=== PATIENT | male | born 1945 | race Hispanic/Latino ===

== ENCOUNTER 2017-07-05 21:07 | Emergency (ER) | payer MEDICARE ==
--- NOTE | 2017-07-05 21:32 | ED PDOC ---
Syncope/Near Syncope/Dizziness Time Seen by Provider: 07/05/17 21:13 Chief Complaint (Nursing): Chest Pain Chief Complaint (Provider): Syncope History Per: Patient History/Exam Limitations: no limitations Onset/Duration Of Symptoms: Mins (prior to arrival) Current Symptoms Are (Timing): Still Present Number Of Syncopal Episodes: 1 Additional History Per: Family Additional Complaint(s): The patient is a 72yo male, with PMHx aortic stenosis, CHF, CLL, diabetes, CAD and surgical history of cardiac stents, is brought to the ED via EMS for evaluation of a syncopal episode. Patient is accompanied by his family members who report the patient passed out at home and prior to the episode, he was complaining of chest pain. The patient reports that his chest pain has been present for a long time due to his history of aortic stenosis. EMS report that on field, patient had low blood pressure and was diaphoretic. The patient is currently complaining of mild chest pain and difficultly breathing. He denies any fever or cough. Of note, patient reports he was diagnosed with aortic stenosis many years ago and has been worked up at [facility] and is scheduled for an aortic surgery tomorrow. Patient states the surgery is to be performed by Dr. Darin Garcia and Dr. Jordy Clark at [facility]. Patient currently offers no additional medical complaints. PMD: Out of State Past Medical History Reviewed: Historical Data, Nursing Documentation, Vital Signs Vital Signs: Last Vital Signs Temp 98.3 F 07/05/17 21:09 Pulse 110 H 07/05/17 21:23 Resp 22 07/05/17 21:09 BP 104/72 07/05/17 21:23 Pulse Ox - Medical History PMH: CHF, Diabetes Other PMH: CLL, aortic stenosis - Surgical History Surgical History: Coronary Stent - Family History Family History: States: Unknown Family Hx - Social History Current smoker - smoking cessation education provided: No Alcohol: None Drugs: Denies - Home Medications Home Medications: Ambulatory Orders Medication Instructions Recorded Aspirin [Aspirin Chewable] 1 tab PO DAILY 07/06/17 Olmesartan Medoxomil [Benicar] 1 tab PO DAILY 07/06/17 Pravastatin Sodium [Pravachol] 10 mg PO DAILY 07/06/17 valACYclovir [Valtrex] 1 tab PO DAILY 07/06/17 - Allergies Allergies/Adverse Reactions: Allergies Allergy/AdvReac Type Severity Reaction Status Date / Time No Known Allergies Allergy Verified 07/05/17 21:09 Review of Systems ROS Statement: Except As Marked, All Systems Reviewed And Found Negative Constitutional: Negative for: Fever Cardiovascular: Positive for: Chest Pain Respiratory: Positive for: Shortness of Breath. Negative for: Cough Neurological: Positive for: Other (syncopal episode) Physical Exam - Reviewed Nursing Documentation Reviewed: Yes Vital Signs Reviewed: Yes - Physical Exam Appears: Positive for: No Acute Distress. Negative for: Well Head Exam: Positive for: ATRAUMATIC, NORMAL INSPECTION, NORMOCEPHALIC Skin: Positive for: Warm (extremities ), Diaphoresis Eye Exam: Positive for: Normal appearance, EOMI, PERRL Neck: Positive for: Normal, Supple Cardiovascular/Chest: Positive for: Regular Rate, Rhythm, Murmur Respiratory: Positive for: Accessory Muscle Use, Crackles (bilaterally present at base of lungs) Pulses-Dorsalis Pedis (L): 2+ Pulses-Dorsalis Pedis (R): 2+ Pulses-Radial (L): 2+ Pulses-Radial (R): 2+ Gastrointestinal/Abdominal: Positive for: Normal Exam, Soft. Negative for: Tenderness Back: Positive for: Normal Inspection Extremity: Positive for: Normal ROM, Pedal Edema (mild edema present bilaterally ), Other (extremities cool to touch). Negative for: Deformity, Swelling Neurologic/Psych: Positive for: Alert, Oriented. Negative for: Motor/Sensory Deficits - Laboratory Results Result Diagrams: 07/05/17 21:25 07/05/17 21:25 - Critical Care Total Time (In Min): 180 Documented Critical Care: Time excludes all time spent performint seperately billable procedures Medical Decision Making Medical Decision Making: Time: 2112 Impression: Syncope with hypotension, CHF exacerbation due to aortic stenosis. Differential: ACS, pulmonary embolism less likely, advanced heart failure, cardiac arrhythmia Plan: * EKG * BNP * Troponin I * Labs * PTT * PT * CXR Time: 2152 Call placed to [facility] Time: [address] Javed, cardiac surgeon manager administration at [facility] who reports he will admit patient to cardiac ICU pending bed availability. Case also discussed with Dr. Darin Garcia, patient's primary cardiac surgeon at [facility], who accepted the patient to Cardiac ICU under his service and has requested a bed from the transfer center. Transfer center is currently working to get a bed at the Cardiac ICU however there are no empty beds. The patient at this moment is accepted for transfer to Cardiac ICU at [facility] pending bed availability. Pt is to be transferred because [facility] does not have a cardiac surgery or cardiac ICU facility. Plan discussed at length with patient and his family who agree with transfer to [facility] pending a bed. Time: 2199 -- Morphine 2mg IVP ordered Time: 0 Pt with increased difficulty breathing, pulse ox dropped to 80's and pt was placed on BIPAP. After BIPAP placement, pt had significant improvement and normal levels of O2 saturation. -- Morphine 2mg IVP ordered Due to length of transfer to [facility], [facility] cardiac surgery team contacted for a possible transfer due to proximity to this facility. Case was also discussed with anesthesiologist manager administration to discuss about the possibility of intubating patient due to the length of trasnger. Due to comorbities of the patient and severe stenosis, anesthesiologist does not recommend intubation outside an OR. Patient and family informed of necessity for intubation and they refuse intubating patient for transfer. Time: 2232 -- ABG ordered Time: 2234 Case discussed with ADARSH Aldana at [facility], who is working for Dr. West; ADARSH Aldana discussed case with Dr. West who will accept the patient to cardiac ICU at [facility] if the patient agrees to go. Dr. West reports there is a bed available at this time. This information was discussed with the patient and his family who refuse the transfer. Patient and family prefer to transfer patient to [facility] pending availability of bed. Time: 2250 Pt significantly improved. Time: 225 -- Lasix 20 mg IVP ordered Time: 225 -- Morphine 2mg IVP ordered Time: 2320 Pt significantly improved, denies any chest pain. Time: 2350 Pt stable with no chest pain. Time: 0000 Call placed to [facility], no beds currently available. Caall placed to [facility], who state there is a bed available in cardiac ICU. Patient and family informed of update. Time: 0120 No beds are currently available at [facility]. [facility] report there is still a bed available in cardiac ICU. Patient and family informed of update. Time: 0140 Call received from [facility] with a bed availability. Transfer will be arranged through [facility], helicopter transfer also considered but is not possible due to weather. Patient and family informed of bed availability. Patient is significantly improved with no chest pain and is stable for transfer. Scribe Attestation: Documented by Sruthi Montano, acting as scribes for Desire Chavez MD. Provider Scribe Attestation: All medical record entries made by the Scribe were at my direction and personally dictated by me. I have reviewed the chart and agree that the record accurately reflects my personal performance of the history, physical exam, medical decision making, and the department course for this patient. I have also personally directed, reviewed, and agree with the discharge instructions and disposition. Disposition - Clinical Impression Clinical Impression: Chest pain, Syncope, CHF (congestive heart failure), Aortic stenosis - Patient ED Disposition Is Patient to be Admitted: No Counseled Patient/Family Regarding: Studies Performed, Diagnosis - Disposition Disposition: Other Institution ([facility]) Disposition Time: 22:00 Condition: STABLE
[2017-07-05 21:38] LABS: EOS # 0.1 K/uL (0.0-0.7); EOS % 0.1 % (0.0-4.0); MEAN CORPUSCULAR HEMOGLOBIN 31.4 pg (27.0-31.0); NEUT % 2.7 % (50.0-75.0)
[2017-07-05 21:39] LABS: BLOOD UREA NITROGEN 15 mg/dl (9-20); CALCIUM 8.3 mg/dL (8.4-10.2); CARBON DIOXIDE 20 mmol/L (22-30); CHLORIDE 100 mmol/L (98-107); GFR AFRICAN-AMERICAN > 60; GLUCOSE,RANDOM 255 mg/dL (75-110); SODIUM 131 mmol/l (132-148)
[2017-07-05 21:40] LABS: POTASSIUM 5.2 MMOL/L (3.6-5.0)
[2017-07-05 21:44] LABS: HEMATOCRIT 29.3 % (35.0-51.0); LYMPH # 110.8 K/uL (1.0-4.3); LYMPH % 96.1 % (20.0-40.0); MEAN CELL VOLUME 107.1 fl (80.0-94.0); MEAN CORPUSCULAR HGB CONC 29.3 g/dL (33.0-37.0); MEAN PLATELET VOLUME 8.5 fl (7.2-11.7); MONO # 1.2 K/uL (0.0-0.8); MONO % 1.1 % (0.0-10.0); NEUT # 3.2 K/uL (1.8-7.0); NRBC % 0.4 % (0.0-0.0); PLATELET COUNT 181 K/uL (130-400); RED CELL DISTRIBUTION WIDTH 18.5 % (11.5-14.5)
[2017-07-05 21:45] VITALS: O2SAT 100
[2017-07-05 21:48] LABS: WHITE BLOOD COUNT 115.3 K/uL (4.8-10.8)
[2017-07-05] MEDS ORDERED: DOBUTAMINE 500 MG/250 ML ONE (22:26)
[2017-07-05] MEDS ORDERED: D5W ONE (22:26)
[2017-07-05 22:34] LABS: PARTIAL THROMBOPLASTIN TIME 30.2 Seconds (25.6-37.1)
[2017-07-05 22:40] LABS: ABG ALLEN TEST YES; ABG MECHANICAL RATE 12; ARTERIAL BLOOD GAS O2 CAPACITY 13.1 mL/dL (16-24); ARTERIAL BLOOD GAS O2 CONTENT 13.2 ML/dL (15-23); ARTERIAL BLOOD GAS PO2 146 mm/Hg (80-100); ARTERIAL BLOOD HGB O2 SAT 94.3 % (95.0-98.0); CARBOXYHEMOGLOBIN 2.6 % (0.5-1.5); HHB -0.7 % (0.0-5.0); METHEMOGLOBIN 3.8 % (0.0-3.0)
[2017-07-05 22:43] LABS: NEUTROPHIL 5 % (42-75); SMUDGE CELLS PRESENT; TOTAL CELLS COUNTED 100
[2017-07-06 02:01] VITALS: BP 120/68; PULSE 71; RESP 20; TEMP 97.9
--- NOTE | 2017-07-06 10:19 | RAD ---
HISTORY: chest pain COMPARISON: No prior. FINDINGS: LUNGS: Heterogeneous infiltrates are appreciate bilaterally but worst at the right base. Right apex appears least affected. PLEURA: Trace effusion is suggested the minor fissure versus linear atelectasis adjacent to it. No pneumothorax apparent. CARDIOVASCULAR: Cardiomegaly is appreciate without definite pulmonary vascular derangement. OSSEOUS STRUCTURES: No significant abnormalities. VISUALIZED UPPER ABDOMEN: Normal. OTHER FINDINGS: None. IMPRESSION: Heterogeneous infiltrates identified bilaterally most contrary at the right base at this time. No pleural effusion or pneumothorax. Trace effusion at minor fissure versus linear atelectasis. Cardiomegaly.
--- NOTE | 2017-07-07 11:35 | CARD ---
APPROVED REPORT EKG Measurement Heart [id number] <Conclusion> Sinus tachycardia with 1st degree AV block with occasional premature ventricular complexes Anterior infarct, age undetermined ST & T wave abnormality, consider lateral ischemia Abnormal ECG
== END 2017-07-06 03:39 | disposition short-term general hospital (02) ==
LOC: H.ER 21:07
DX: I50.9 Heart failure, unspecified (principal); I35.0 Nonrheumatic aortic (valve) stenosis; E11.9 Type 2 diabetes mellitus without complications; Z79.82 Long term (current) use of aspirin; Z95.5 Presence of coronary angioplasty implant and graft
CPT/HCPCS: 71010; 80048; 82803; 83880; 84484; 85025; 85610; 85730; 93005; 94660; 96374; 96375; 99285; J1940; J2270